=== PATIENT | female | born 1970 | race Caucasian/White ===

== ENCOUNTER 2022-05-17 08:59 | Inpatient (IN) | payer OTHER ==
[~2022-05-17] VITALS: Ht 152.4 cm; Wt 86.9 kg
[~2022-05-17 08:59] MED LIST: CHOL10002 PO; OTC ALLERGY; Protonix40 MG PO; Zofran4 MG PO
[2022-05-17 10:15] LABS: BASOPHILS ABSOLUTE AUTO 0.04 K/mm3 (0.00-0.23); BASOPHILS PERCENT AUTO 0 % (0-2); EOSINOPHILS ABSOLUTE AUTO 0.04 K/mm3 (0.00-0.68); EOSINOPHILS PERCENT AUTO 0 % (0-6); Hematocrit 39.7 % (33.0-51.0); Hemoglobin 14.4 g/dL (11.5-16.0); IMMATURE GRAN ABSOLUTE AUTO 0.13 K/mm3 (0.00-0.10); IMMATURE GRAN PERCENT AUTO 1 % (0-1); LYMPHOCYTES ABSOLUTE AUTO 2.25 K/mm3 (0.84-5.20); LYMPHOCYTES PERCENT AUTO 22 % (21-46); MONOCYTES ABSOLUTE AUTO 0.82 K/mm3 (0.16-1.47); MONOCYTES PERCENT AUTO 8 % (4-13); Mean Corpuscular HGB 32.3 pg (26.0-34.0); Mean Corpuscular HGB Conc 36.3 g/dL (31.5-36.5); Mean Corpuscular Volume 89 fL (80-100); Mean Platelet Volume 12.1 fL (9.1-12.4); NEUTROPHILS ABSOLUTE AUTO 6.79 K/mm3 (1.96-9.15); NEUTROPHILS PERCENT AUTO 68 % (41-73); Platelet Count 270 K/mm3 (150-400); RDW Standard Deviation 42.6 fL (35.1-46.3); Red Blood Cell Count 4.46 M/mm3 (3.80-5.20); White Blood Cell Count 10.07 K/mm3 (4.00-11.30)
[2022-05-17 10:37] LABS: Albumin, Blood 4.3 g/dL (3.4-5.0); Albumin/Globulin Ratio 1.2 (0.8-1.8); Bilirubin, Total 0.6 mg/dL (0.1-1.0); Bun/Creatinine Ratio 13.6 (12.0-20.0); Calcium, Blood 8.8 mg/dL (8.5-10.1); Creatinine, Blood 0.66 mg/dL (0.40-1.00); Globulin, Blood 3.7 g/dL (2.2-4.0); Potassium, Blood 3.6 mmol/L (3.5-5.5)
[2022-05-17 11:08] LABS: Influenza A, PCR NEGATIVE (NEGATIVE); Influenza B, PCR NEGATIVE (NEGATIVE); Resp Syncytial Virus, PCR NEGATIVE (NEGATIVE)
[2022-05-17 11:16] LABS: SARS-Cov-2 (COVID-19) PCR, MMC POSITIVE (NEGATIVE)
--- NOTE | 2022-05-17 18:19 | NUR ---
PATIENT IS ALERT AND ORIENTED AND COOPERATIVE WITH CARE. ON 2L O2 VIA NC. INDEPENDENT IN HER ROOM. C/O MUSCLE ACHES AND WEAKNESS. POOR APPETITE. TOOK A FEW BITES OF HER DINNER. WAS AT THE BEDSIDE ON ADMISSION BUT LEFT SOON AFTER. PATIENT IS [place]. STATES SHE HAS TINNITUS IN HER RIGHT EAR. NS AT 150/HR. EXPIRATORY WHEEZE THROUGHOUT. PATIENT IS SURPRISED THAT SHE WEIGHS 86 KG. THOUGHT SHE ONLY WEIGHED 140LB. WILL CONTINUE TO MONITOR
[2022-05-18 04:59] LABS: BASOPHILS ABSOLUTE AUTO 0.03 K/mm3 (0.00-0.23); BASOPHILS PERCENT AUTO 0 % (0-2); EOSINOPHILS ABSOLUTE AUTO 0.12 K/mm3 (0.00-0.68); EOSINOPHILS PERCENT AUTO 1 % (0-6); Hematocrit 34.2 % (33.0-51.0); Hemoglobin 12.3 g/dL (11.5-16.0); IMMATURE GRAN ABSOLUTE AUTO 0.33 K/mm3 (0.00-0.10); IMMATURE GRAN PERCENT AUTO 2 % (0-1); LYMPHOCYTES PERCENT AUTO 9 % (21-46); MONOCYTES ABSOLUTE AUTO 0.58 K/mm3 (0.16-1.47); MONOCYTES PERCENT AUTO 3 % (4-13); Mean Corpuscular HGB 32.9 pg (26.0-34.0); Mean Corpuscular Volume 91 fL (80-100); Mean Platelet Volume 12.5 fL (9.1-12.4); NEUTROPHILS ABSOLUTE AUTO 17.31 K/mm3 (1.96-9.15); NEUTROPHILS PERCENT AUTO 86 % (41-73); Platelet Count 257 K/mm3 (150-400); RDW Coefficient Variation 13.2 % (11.7-14.2); RDW Standard Deviation 45.4 fL (35.1-46.3); Red Blood Cell Count 3.74 M/mm3 (3.80-5.20); White Blood Cell Count 20.17 K/mm3 (4.00-11.30)
[2022-05-18 05:53] LABS: Bun/Creatinine Ratio 13.4 (12.0-20.0); Calcium, Blood 8.1 mg/dL (8.5-10.1); Creatinine, Blood 0.75 mg/dL (0.40-1.00); Potassium, Blood 3.6 mmol/L (3.5-5.5)
--- NOTE | 2022-05-18 06:20 | NUR ---
SHIFT SUMMARY NOC PT A/OX4. PT SODIUM IS NOW AT 122. PT HAS NS @ 150/MLS INFUSING. PT IS IN ISO FOR COVID-19. PT SPOUSE VISITED IN PM. PT HAD NO ACUTE CHANGES DURING SHIFT. WCTM LOW SODIUM. PT CURRENTLY ASYMPTOMATIC. PT IS ON 4L/NC. PT IS CURRENTLY RESTING WITH BED RAILS UP, BED IN LOWEST POSITION, AND CALL LIGHT WITHIN REACH.
--- NOTE | 2022-05-18 17:04 | NUR ---
THIS GOVERNMENT CONTRACTS MANAGER HAS REVIEWED ALL NOTES AND ASSESSMETNTS BY JOSE G DESAI AND AGREES WITH THEM.
--- NOTE | 2022-05-18 17:45 | NUR ---
SHIFT SUMMARY: PT ALERT AND ORIENTED X4. NO ACUTE CHANGES WITH PT THIS SHIFT. PT STATED SHE IS STILL HAVING CHILLS, BODY ACHES, AND A HEADACHE OF 8/10 PAIN. GAVE PT TYLENOL WHICH BROUGHT HER DOWN TO 5/10 PAIN. PT CURRENTLY HAS 150ML/NS RUNNING IN IV. PT INDEPENDENT IN ROOM BUT ADVISED PT TO CALL WHEN SHE NEEDS TO GET UP SHE IS PULLING ON HER IV. PT [place] AND STATES SHE HAS TINNITUS IN RIGHT EAR. CALL LIGHT IN REACH. BED IN LOWEST POSITION. WILL CONTINUE TO MONITOR.
--- NOTE | 2022-05-19 03:44 | NUR ---
SHIFT SUMMARY NOC PT A/OX4. IND IN ROOM BUT CALLS FOR ASSISTANCE TO EMPTY BSC. PT ON 4L/NC. PT HAS 2ND PERIPHERAL IV SITE IN LFA PLACED BEFORE SHIFT CHANGE TO AVOID OCCLUSION ERRORS WITH IV PUMP. PT HAS NEW ORDER FOR REMDESIVIR WITH ONE BAG INFUSED AT 1900 AND NEXT SCHEDULED FOR 0900 ON 05/19/22. NS CURRENTLY INFUSING @ 150 MLS. PT STILL HYPONATREMIC AT 122 OF 05/18/22. PT REMAINS ASYMPTOMATIC. PT HAD C/O MILD FOSTER AND GIVEN TYLENOL PER EMAR WHICH RESOLVED IT. PT HAD MULTIPLE LOOSE STOOLS. WCTM. PT CURRENTLY RESTING WITH BED RAILS UP, BED IN LOWEST POSITION, AND CALL LIGHT WITHIN REACH.
[2022-05-19 06:17] LABS: BASOPHILS ABSOLUTE AUTO 0.03 K/mm3 (0.00-0.23); BASOPHILS PERCENT AUTO 0 % (0-2); EOSINOPHILS ABSOLUTE AUTO 0.03 K/mm3 (0.00-0.68); EOSINOPHILS PERCENT AUTO 0 % (0-6); Hematocrit 34.6 % (33.0-51.0); Hemoglobin 11.9 g/dL (11.5-16.0); IMMATURE GRAN ABSOLUTE AUTO 0.42 K/mm3 (0.00-0.10); IMMATURE GRAN PERCENT AUTO 2 % (0-1); LYMPHOCYTES ABSOLUTE AUTO 1.03 K/mm3 (0.84-5.20); LYMPHOCYTES PERCENT AUTO 4 % (21-46); MONOCYTES ABSOLUTE AUTO 1.65 K/mm3 (0.16-1.47); MONOCYTES PERCENT AUTO 7 % (4-13); Mean Corpuscular HGB 32.2 pg (26.0-34.0); Mean Corpuscular HGB Conc 34.4 g/dL (31.5-36.5); Mean Corpuscular Volume 94 fL (80-100); Mean Platelet Volume 12.8 fL (9.1-12.4); NEUTROPHILS ABSOLUTE AUTO 20.74 K/mm3 (1.96-9.15); NEUTROPHILS PERCENT AUTO 87 % (41-73); Platelet Count 255 K/mm3 (150-400); RDW Standard Deviation 47.9 fL (35.1-46.3); Red Blood Cell Count 3.69 M/mm3 (3.80-5.20)
[2022-05-19 06:58] LABS: Albumin, Blood 3.6 g/dL (3.4-5.0); Anion Gap 7 mmol/L (6-16); Blood Urea Nitrogen 8 mg/dL (8-24); Bun/Creatinine Ratio 11.3 (12.0-20.0); CO2, Blood 26 mmol/L (21-32); Calcium, Blood 8.3 mg/dL (8.5-10.1); Chloride, Blood 102 mmol/L (98-108); Creatinine, Blood 0.71 mg/dL (0.40-1.00); Glomerular Filtration Rate 104 (60-); Glucose, Blood 116 mg/dL (70-99); Phosphorus, Blood 1.7 mg/dL (2.5-4.9); Potassium, Blood 3.7 mmol/L (3.5-5.5); Sodium, Blood 135 mmol/L (136-145)
--- NOTE | 2022-05-19 16:40 | NUR ---
NO ACUTE CHANGES PT AOX4 AND COOPERATIVE OF CARE. PT INDEPENDENT AND ABLE TO MAKE NEEDS KNOWN. CALL LIGHT IS WITHIN REACH WILL CONTINUE TO MONITOR. PT HAD FOSTER TREATED PER EMAR. NO DISTRESS NOTED.
--- NOTE | 2022-05-20 04:18 | NUR ---
SHIFT SUMMARY PATIENT HAD NO ACUTE CHANGES OBSERVED. AXO X4 AND INDEPENDENT IN ROOM. POWERGLIDE CASSIA INTACT. ON 4L O2 NC. PRESENT IN ROOM FIRST PART OF SHIFT. HYPERTENSIVE FIRST SET OF VITALS REPORTING ANGRY AT FAMILY MEMBER ON PHONE. NEXT SET VSS/AFEBRILE. DENIES PAIN, SOB, AND N/V. CALL LIGHT IN REACH. BED IN LOWEST POSITION. WILL CONTINUE TO MONITOR UNTIL DAY SHIFT NURSE ASSUMES CARE.
--- NOTE | 2022-05-20 13:09 | NUR ---
PT IS AOX4 WITH EXTREME ANXIETY TODAY. PT HAS ALSO STATED SHE IS CONFUSED AND UPSET ABOUT HER AND BROTHER. PT HAS CRIED MULTIPLE TIMES AND WANTS TO TALKE FOR LONG PERIODS, BUT IS VERY HARD TO CONSOLE. PT HAS BEEN REFUSING TO WEAR HER NASAL CANULA AND IS SATING AT 87-88% RA. DR WARREN WAS NOTIFIED OF PT'S BEHAVIOR. PT SAT IN RESTROOM FOR MORE THAN 45 MIN ON THE PHONE WITH HER COMPLAINING OF THE CARE SHE IS RECIEVING. ALL HER NEEDS ARE BEING CARED FOR WELL AT THIS TIME. PT HAS ALSO STARTED STOPPING HER IV FLUIDS, CHARGE HAS UNHOOKED THEM WILL TRY TO RUN AGAIN WHEN SHE HAS HER MRI AND RETURNS.WILL CONTINUE TO MONITOR.
--- NOTE | 2022-05-20 16:37 | NUR ---
PT AOX4 AND CONTINUES TO BE IRRITATED WITH CARE YET WILL SAY THANK YOU SHE IS BEING HELPED. PT IS TRYING TO LAY DOWN AND REST SHE SPENT A GOOD PORTION OF HER DAY SITTING IN THE RESTROOM. PT WAS ABLE TO COMPLETE MRI AND WAS TREATED WITH ATIVAN PRIOR TO IMAGING. PT HAS LET HER IV FLUIDS AND O2 BE HOOKED UP AGIAN. CALL LIGHT IS WITHIN REACH WILL CONTINUE TO MONITOR.
[2022-05-21 01:39] LABS: Albumin, Blood 3.5 g/dL (3.4-5.0); Anion Gap 9 mmol/L (6-16); Blood Urea Nitrogen 8 mg/dL (8-24); Bun/Creatinine Ratio 11.6 (12.0-20.0); CO2, Blood 29 mmol/L (21-32); Calcium, Blood 8.4 mg/dL (8.5-10.1); Chloride, Blood 92 mmol/L (98-108); Creatinine, Blood 0.69 mg/dL (0.40-1.00); Glomerular Filtration Rate 106 (60-); Glucose, Blood 152 mg/dL (70-99); Phosphorus, Blood 2.2 mg/dL (2.5-4.9); Potassium, Blood 3.2 mmol/L (3.5-5.5); Sodium, Blood 130 mmol/L (136-145)
--- NOTE | 2022-05-21 04:28 | NUR ---
SHIFT SUMMARY PATIENT HAD NO ACUTE CHANGES. ALERT AND ORIENTED X 3 AND INDEPENDENT IN ROOM. POWERGLIDE CASSIA INTACT. DEXTROSE 5% INFUSING AT 75mL/HR. ON 3-4L O2 NC. RT IN FOR BREATHING TX. VSS/AFEBRILE. DENIES PAIN AND N/V. SCHEDULE MELATONIN 5 MG GIVEN PER EMAR AND IN ROOM TALKING PAST MIDNIGHT WITH PATIENT. CALL LIGHT IN REACH. BED IN LOWEST POSITION. WILL CONTINUE TO MONITOR UNTIL DAY SHIFT NURSE ASSUMES CARE.
--- NOTE | 2022-05-21 11:50 | NUR ---
Upon receiving a referral fro pt's RN yesterday, I visit pt. After several failed attempts to visit pt yesterday, I finally was successful today at visiting pt who benefitted greatly from spiritual care. Pt immediately tells me about her fears of dying and not leaving the hospital alive, and about her deep loneliness because of the isolation. Pt shares about the strong support of her SO, her father and her dog and her strong yefri in God. She is tearful as she discusses the of her mom in 2018. I listen empathically, reinforce helpful attitudes and perspectives and provide grief support, anxiety containment, gentle mortgage counselor and prayer. Pt clearly shows signs of an increase in hope and a resolve to focus on recovery rather than fears. I will continue to remain available to pt and family.
--- NOTE | 2022-05-21 18:19 | NUR ---
SHIFT SUMMARY PATIENT DENIES PAIN, NAUSEA, AND SHORTNESS OF BREATH. PATIENT IS IND IN THE ROOM. PATIENT WAS ON 4L AT START OF SHIFT, SATURATING AT 100%. PATIENT TITRATED THROUGHOUT THE DAY. TOLERATED WELL. CURRENTLY ON ROOM AIR, SATURATING AT 96%. PATIENT ANXIOUS THROUGHOUT DAY ABOUT BEING SICK AND IN THE HOSPITAL. ABLE TO CALM PATIENT BY TALKING WITH HER. DRESSING CHANGED ON POWERGLIDE, IT DRAWS BLOOD. AT BEDSIDE IN AFTERNOON. PATIENT EATING AND DRINKING WELL. PATIENT IS PLEASANT AND COOPERATIVE WITH CARE.
--- NOTE | 2022-05-22 04:35 | NUR ---
SHIFT SUMMARY NO OVERNIGHT EVENTS. PT ORIENTED X4, INDEPENDENT IN ROOM. PT ANXIOUS AT BEGINING OF SHIFT, HUSABND IN ROOM THAT SEEMED TO HELP EASE THE ANXIETY. PT ON ROOM AIR, IN MORNING SPO2 88%, PLACED BACK ON 2LO2. GAVE PT INCENTITIVE SPIROMETER AND EDUCATED ON USE. REPORTS MILD SOB. DENIES ANY PAIN, ANY OTHER S/S OF DISTRESS. CALL LIGHT IN REACH, ABLE TO MAKE NEEDS KNOWN.
[2022-05-22 04:54] LABS: Hematocrit 32.7 % (33.0-51.0); Hemoglobin 11.5 g/dL (11.5-16.0); Mean Corpuscular HGB 32.6 pg (26.0-34.0); Mean Corpuscular HGB Conc 35.2 g/dL (31.5-36.5); Mean Corpuscular Volume 93 fL (80-100); Mean Platelet Volume 12.8 fL (9.1-12.4); NRBC ABSOLUTE 0.04 K/mm3 (0.00-0.02); NRBC Auto 0.2 /100 WBC (0.0-0.2); Platelet Count 254 K/mm3 (150-400); RDW Coefficient Variation 14.3 % (11.7-14.2); RDW Standard Deviation 48.6 fL (35.1-46.3); Red Blood Cell Count 3.53 M/mm3 (3.80-5.20)
[2022-05-22 05:22] LABS: Albumin, Blood 3.4 g/dL (3.4-5.0); Anion Gap 5 mmol/L (6-16); Blood Urea Nitrogen 12 mg/dL (8-24); Bun/Creatinine Ratio 15.4 (12.0-20.0); CO2, Blood 34 mmol/L (21-32); Calcium, Blood 8.6 mg/dL (8.5-10.1); Chloride, Blood 91 mmol/L (98-108); Creatinine, Blood 0.78 mg/dL (0.40-1.00); Glomerular Filtration Rate 92 (60-); Glucose, Blood 114 mg/dL (70-99); Phosphorus, Blood 2.8 mg/dL (2.5-4.9); Potassium, Blood 3.8 mmol/L (3.5-5.5); Sodium, Blood 130 mmol/L (136-145)
[2022-05-22] MEDS ORDERED: DECADRON6 M1 PO (11:04)
[2022-05-22] MEDS ORDERED: EUTHYROX75 MCG PO (11:05)
--- NOTE | 2022-05-22 14:25 | NUR ---
NOTES/DISCHARGE SUMMARY: PATIENT A&OX4. CALM, PLEASANT AND COOPERATIVE c CARE. USES CALL LIGHT APPROPRIATELY AND ABLE TO ADVOCATE FOR HER NEEDS. DENIES CP/CHEST DISCOMFORT. DENIES GENERALIZED PAIN AND SOB. PATIENT ON O2 2L VIA NC c SPO2 OF 96%. AMBULATES TO BATHROOM INDEPENDENTLY. PATIENT ON ENHANCE ISOLATION FOR POSITIVE COVID 19. PATIENT RECEIVED ANTIBIOTICS TX THIS SHIFT. VITAL SIGNS REVIEWED. POWERGLIDE TO CASSIA WAS DC'D AROUND 1423. PATIENT DISCHARGE HOME. DISCHARGE INSTRUCTIONS PACKET GIVEN TO PATIENT/SPOUSE AT BEDSIDE. EDUCATE PATIENT/SPOUSE REGARDING ADMITTING DX, TX, NEW PRESCRIBED MEDICATION AND O2. PATIENT/SPOUSE STATED UNDERSTANDING AND NO FURTHER QUESTIONS. RX WAS FAXED TO PATIENT PREFERRED PHARMACY ([facility] ALL PATIENT PERSONAL BELONGINGS WERE SENT HOME c THE PATIENT. PATIENT LEFT THE ROOM AT 1500 TRANSPORTED VIA WHEELCHAIR BY SPECIAL PROJECTS MANAGER STAFF ROSSANA HOOPER TO PATIENT'S SPOUSE PRIVATE VEHICLE.
== END 2022-05-22 15:01 | disposition home or self-care (01) | DRG 177 ==
LOC: ER 08:59 → MEDS 13:32
PROVIDERS: Family Medicine; Internal Medicine; Physician Assistant; ADMIT Internal Medicine
PROC: 3E0DX3Z Introduction of Anti-inflammatory into Mouth and Pharynx, External Approach (ICD-10-PCS; principal; 2022-05-17)
PROC: 8E0ZXY6 Isolation (ICD-10-PCS; 2022-05-17)
PROC: XW033E5 Introduction of Remdesivir Anti-infective into Peripheral Vein, Percutaneous Approach, New Technology Group 5 (ICD-10-PCS; 2022-05-18)
DX: U07.1 COVID-19 (principal); J96.01 Acute respiratory failure with hypoxia; E87.1 Hypo-osmolality and hyponatremia; J44.1 Chronic obstructive pulmonary disease with (acute) exacerbation; J45.909 Unspecified asthma, uncomplicated; E03.9 Hypothyroidism, unspecified; R41.82 Altered mental status, unspecified; E87.8 Other disorders of electrolyte and fluid balance, not elsewhere classified; H93.19 Tinnitus, unspecified ear; E83.39 Other disorders of phosphorus metabolism; F12.10 Cannabis abuse, uncomplicated; G47.00 Insomnia, unspecified; E87.6 Hypokalemia; Z88.5 Allergy status to narcotic agent; Z88.2 Allergy status to sulfonamides; Z88.8 Allergy status to other drugs, medicaments and biological substances; Z88.1 Allergy status to other antibiotic agents; Z98.890 Other specified postprocedural states; Z90.721 Acquired absence of ovaries, unilateral; Z87.891 Personal history of nicotine dependence
CPT/HCPCS: 0241U; 36415; 70551; 71045; 80048; 80053; 80069; 83690; 84295; 84443; 85025; 85027; 93005; 93010; 94640; 94644; 94664; 94760; 94761; 96374; 96375; 99285-25; A9270; C1751; J0248; J1650; J2060; J2405; J2930; J7030; J7050; J7060; J7070

== ENCOUNTER 2022-09-23 09:13 | Day surgery (SDC) | payer OTHER ==
[2022-09-23] VITALS (15 sets, daily range): BP systolic 93–143; BP diastolic 53–92
[~2022-09-23] VITALS: Ht 162.6 cm; Wt 84.3 kg
[~2022-09-23 09:13] MED LIST changes: +ATOR40TA PO; +DECADRON6 M1 PO; +ERGO400 PO; +EUTHYROX75 MCG PO
--- NOTE | 2022-09-23 10:21 | NUR ---
Ambulatory in Day Surgery History, Chart, Medications and Allergies reviewed before start of procedure.Pre-Op teaching done. Pt verbalizes understanding. Patient confirms NPO status and agrees with scheduled surgery. Patient States Post-Procedure ride home has been arranged.
--- NOTE | 2022-09-23 11:02 | NUR ---
09/23/22 1102 Remington Garcia HISTORY, CHART, MEDICATIONS AND ALLERGIES REVIEWED BEFORE START OF PROCEDURE. PATIENT CONFIRMS NPO STATUS AND AGREES WITH SCHEDULED PROCEDURE. 3-LEAD EKG REVIEWED WITH PHYSICIAN PRIOR TO START OF PROCEDURE. MONITOR INTACT WITH CONTINUOUS PULSE OXIMETRY,CAPNOGRAPHY, 3-LEAD EKG, INTERMITTENT BP. SUPPLEMENTAL O2 TO BE TITRATED THROUGHOUT PROCEDURE TO MAINTAIN O2 SATURATION ABOVE 90%. PATIENT DETERMINED TO BE ASA APPROPRIATE FOR PROPOFOL SEDATION PRIOR TO START OF PROCEDURE BY
--- NOTE | 2022-09-23 11:41 | NUR ---
Discharge instructions reviewed with patient. Patient verbalizes understanding. Copy given to patient to take home. Patient States Post-Procedure ride home has been arranged. Discharged via wheelchair to private car for ride home.
== END 2022-09-23 22:43 | disposition home or self-care (01) ==
LOC: ORSCMMR 09:13 → ORD 10:00 → ORSCMMR 10:00
PROVIDERS: Internal Medicine Gastroenterology
PROC: 0DBL8ZX Excision of Transverse Colon, Via Natural or Artificial Opening Endoscopic, Diagnostic (ICD-10-PCS; principal; 2022-09-23 10:00)
PROC: 0DBN8ZX Excision of Sigmoid Colon, Via Natural or Artificial Opening Endoscopic, Diagnostic (ICD-10-PCS; principal; 2022-09-23 10:00)
DX: Z12.11 Encounter for screening for malignant neoplasm of colon (principal); D12.5 Benign neoplasm of sigmoid colon; K63.5 Polyp of colon; D12.3 Benign neoplasm of transverse colon; J44.9 Chronic obstructive pulmonary disease, unspecified; Z86.16 Personal history of COVID-19; E03.9 Hypothyroidism, unspecified; E78.00 Pure hypercholesterolemia, unspecified; Z79.899 Other long term (current) drug therapy
CPT/HCPCS: 88305; J2405; J2704; J7120

== ENCOUNTER → 2023-09-28 | Outpatient (CLI) | payer OTHER ==
[2023-09-29 21:14] LABS: LUTEINIZING HORMONE 30.7 IU/L
== END | disposition home or self-care (01) ==
LOC: LAB 15:23 → LAB SHORT 15:23
PROVIDERS: Family Medicine
DX: N95.1 Menopausal and female climacteric states (principal)
CPT/HCPCS: 83001; 83002